=== PATIENT | male | born 1945 | race Caucasian/White ===

== ENCOUNTER → 2017-05-07 | Outpatient (CLI) | payer MEDICARE ==
[~2017-05-07] MED LIST: REGADENOSON 0.4 MG/5 ML DISP.SYRIN. IV ONE
--- NOTE | 2017-05-07 14:26 | PCVCIMAG ---
APPROVED REPORT Exam: Nuclear Stress Test Indication: CAD, DOT Evalutation Patient Location: Out Patient Stress Nurse: Emerald Ness RN, Vani Cherry RN [place] Tech:Edgar Luna NMTCB Ht: 5 ft 7 in Wt: 200 lbs BSA: 2.02 m2 HR: 58 bpm BP: 134/70 mmHg BMI: 31.3 Rhythm: Sinus Bradycardia Medical History Medical History: Hyperlipidemia, HTN, PVD, CVD, CAD Medications: ASA, Plavix, Amlodipine, Atorvastatin, Lisinopril Allergies: No known drug allergies Previous Cardiac Procedures: PCI Pretest Chest Pain Characteristics: No chest pain Exercise History: Physically active Physical Disabilities: Hip Trouble NM EXAM: Myocardial Perfusion REST/STRESS Imaging Protocol: Rest Tc-99m/Stress Tc-99m 1 day Resting Data Rest SPECT myocardial perfusion imaging was performed in supine position 45 minutes following the intravenous injection of 10.7 mCi of Tc-99m Sestamibi. Time of rest injection: 904 Date: 05/07/2017 Pharmacologic Stress Pharmacologic stress test was performed by injecting Regadenoson 0.4 mg IV push followed by the intravenous injection of 32.9 mCi of Tc-99m Sestamibi. Time of stress injection: 1039 Date: 05/07/2017 Gated Stress SPECT was performed 45 minutes after stress injection. The images were gated to evaluate regional wall motion and calculate left ventricular ejection fraction. Study Quality Study: Good Study Data Post stress, the left ventricular ejection was 51%.. SSS: 2 SRS: 2 SDS: 2 TID = 0.93. Perfusion No evidence of stress induced ischemia or prior myocardial infarction. Wall Motion Normal left ventricular size and function with no regional wall motion abnormalities. Nuclear Conclusion No evidence of stress induced ischemia or prior myocardial infarction. Normal left ventricular size and function with no regional wall motion abnormalities. Post stress, the left ventricular ejection was 51%.. No change since prior study dated May 2015. Interpreted by: Edilson Rodas MD Electronically Approved: 05/07/2017 12:22:37 Stress Test Details Stress Test: Pharmacologic stress was paired with low level exercise. Reason for pharmacologic stress test: physical limitation. HR Resting HR: 58 bpmMax Heart Rate (APMHR): 149 bpm Max HR Achieved: 96 bpmTarget HR (85% APMHR): 126 bpm % of APMHR: 64 Recovery HR: 61 bpm BP Resting BP: 134/70 mmHg Max BP: 156/68 mmHg Recovery BP: 126/59 mmHg ECG Resting ECG: Sinus Bradycardia Stress ECG: Sinus Rhythm Recovery ECG: Sinus Rhythm, NSSTT changes Recovery ST Change: None Recovery ST Deviation: 2.5 mm Clinical Reason for Termination: Completed Protocol Stress Symptoms: None Symptoms resolved during recovery. Stress ECG Conclusion ECG: Non-ischemic <Conclusion> ECG: Non-ischemic
== END | disposition home or self-care (01) ==
LOC: PCVCIMAG 08:53
PROVIDERS: ATTEND Internal Medicine Cardiovascular Disease
DX: I25.10 Atherosclerotic heart disease of native coronary artery without angina pectoris (principal); I70.1 Atherosclerosis of renal artery; I10 Essential (primary) hypertension; M19.90 Unspecified osteoarthritis, unspecified site; E78.00 Pure hypercholesterolemia, unspecified; E78.1 Pure hyperglyceridemia; I65.23 Occlusion and stenosis of bilateral carotid arteries; I73.9 Peripheral vascular disease, unspecified; R00.1 Bradycardia, unspecified; F17.200 Nicotine dependence, unspecified, uncomplicated; E78.5 Hyperlipidemia, unspecified; Z95.1 Presence of aortocoronary bypass graft; Z79.82 Long term (current) use of aspirin; Z79.899 Other long term (current) drug therapy
CPT/HCPCS: 78452; 80061; 93017; A9500; G0463; J2785